=== PATIENT | female | born 1995 | race Caucasian/White ===

== ENCOUNTER 2025-02-12 05:46 | Emergency (ER) | payer OTHER, SELFPAY ==
[2025-02-12] VITALS (10 sets, daily range): BP systolic 103–135; BP diastolic 48–67; PULSE 98–114; RESP 18; TEMP 37–37.9; O2SAT 94–97
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
[2025-02-12 06:39] LABS: Lactate 1.6 mmol/L (<or=2.0)
[2025-02-12 06:45] LABS: Abs Immature Grans 0.07 10^3/uL (0.0-0.06); Absolute Eosinophil Count 0.02 10^3/uL (0.0-0.7); Absolute Lymphocyte Count 0.67 10^3/uL (1.2-3.4); Absolute Monocyte Count 0.78 10^3/uL (0.1-0.8); Basophils % 0.3 %; Eosinophils % 0.1 %; HCT 38.9 % (36.0-46.0); Immature Grans % 0.5 %; Lymphocytes % 4.4 %; MCH 27.5 pg (27.0-33.0); MCHC 33.4 % (32.0-36.0); MCV 82 fL (80-95); MPV 10.8 fL (8.0-11.0); Monocytes % 5.1 %; Neutrophils % 89.6 %; Platelet Count 316 10^3/uL (130-400); RBC 4.73 10^6/uL (3.93-5.22); RDW 13.1 % (11.7-14.6); RDW-SD 39.2 fL; WBC 15.34 10^3/uL (4.4-10.8)
[2025-02-12 06:46] LABS: Absolute Basophil Count 0.05 10^3/uL (0.0-0.2); Absolute Neutrophil Count 13.74 10^3/uL (1.2-6.7)
[2025-02-12] MEDS: Lactated Ringers 1,000 ML 1000 ML IV (07:00)
[2025-02-12] MEDS: Ketorolac 15 MG/ML VIAL IVP (07:01)
[2025-02-12 07:02] LABS: ALT 37 U/L (14-59); AST 20 U/L (15-37); Albumin 3.7 g/dL (3.4-5.0); Alkaline Phosphatase 102 U/L (46-116); Anion Gap 10.5 mmol/L (3-11); BUN 9 mg/dL (7-18); Bilirubin, Total 0.6 mg/dL (0.2-1.0); CO2 24.5 mmol/L (21.0-32.0); CREATININE 0.8 mg/dL (0.55-1.02); Calcium 9.4 mg/dL (8.5-10.1); Chloride 103 mmol/L (98-107); Estimated GFR 102.86 (mL/min/1.73m2); Glucose 144 mg/dL (74-106); Potassium 3.7 mmol/L (3.5-5.1); Sodium 138 mmol/L (136-145); Total Protein 8.3 g/dL (6.4-8.2)
[2025-02-12] MEDS: ACETAMINOPHEN 1,000 MG/100 ML BTL 400 MG (07:03)
[2025-02-12 07:21] LABS: HCG Qual (Serum) Negative
[2025-02-12 07:32] LABS: Procalcitonin 0.13 ng/mL
[2025-02-12 07:39] LABS: COVID-19 PCR Negative (Negative); Influenza A PCR Negative (Negative); Influenza B PCR Negative (Negative); RSV PCR Negative (Negative)
[2025-02-12 07:42] LABS: Source Nasopharynx
[2025-02-12] MEDS: Omnipaque 350 MG/ML 100 ML BTL IJ (08:01)
[2025-02-12] MEDS: Normal Saline - Diluent 50 ML VIAL IJ (08:02)
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
--- NOTE | 2025-02-12 09:07 | W.EDPROG ---
Date of service: 02/12/25 Time of Service: 09:07 Medical Decision Making Patient's CTA shows no concerning findings. Patient feels significantly better. Has no meningismus. She does note she has had sinus pressure and nasal congestion for over 2 weeks I suspect she could have sinusitis. I am starting her on Augmentin. She will follow-up with her PCP or express care if not improving and return precautions given Quality:[facility] Related Social Needs: No Data to Display Discharge Plan Disposition Patient Disposition: Home Condition: Stable Discharge Details Clinical Impression: Acute neck sprain, Sinusitis ED Provider: Yoshi Aquino Home Meds and New Rx's Prescriptions: New amoxicillin-pot clavulanate 875-125 mg tablet 1 tab PO BID Qty: 20 0RF Continued acetaminophen 500 mg capsule 500 mg PO Q6H PRN magnesium 250 mg tablet 250 mg PO QHS cyanocobalamin (vitamin B-12) [B-12 Compliance] .ROUTE gabapentin 300 mg capsule 300 mg PO TID doxylamine succinate 25 mg tablet 25 mg PO QHS PRN shatavari 1,000 mg 1,000 mg DAILY ibuprofen [Advil] 200 mg tablet 200 mg PO TID-QID PRN spironolactone [Aldactone] 50 mg tablet 50 mg PO BID atorvastatin 20 mg tablet 20 mg PO DAILY ferrous sulfate [Feosol] 325 mg (65 mg iron) tablet 325 mg PO DAILY sertraline 100 mg tablet 150 mg PO DAILY Discharge Instructions Additional Instructions: Your CAT scan did not show any concerning findings at this time. You can take 1000 mg of acetaminophen and 600 mg of ibuprofen every 6 hours as needed. If you are not improving within a week follow-up with either express care or your primary care provider. If you feel significantly more ill or have new symptoms such as persistent vomiting return to the emergency department for reevaluation.
== END 2025-02-12 09:44 | disposition home or self-care (01) ==
LOC: ER 09:36
PROVIDERS: Student in an Organized Health Care Education/Training Program; Emergency Provider Emergency Medicine; PCP Physician Assistant Medical
DX: J01.90 Acute sinusitis, unspecified (principal); S13.9XXA Sprain of joints and ligaments of unspecified parts of neck, initial encounter; X58.XXXA Exposure to other specified factors, initial encounter; D72.829 Elevated white blood cell count, unspecified
CPT/HCPCS: 99284; 99285; 36415; 96374; 96375; 00123; 70496; 70498; 80053; 84145; 87040; 87637; 96361; 83605; 84703; 85025; J0131; J1885; J3490